=== PATIENT | female | born 1995 | race African-American/Black ===

== ENCOUNTER 2021-10-17 14:23 | Emergency (ER) | payer OTHER ==
[~2021-10-17] VITALS: Ht 162.6 cm; Wt 101.4 kg
--- NOTE | 2021-10-17 15:37 | PHYS DOC ---
Past Medical History Past Medical History: No Pertinent History Past Surgical History: No Surgical History General Adult EDM: Chief Complaint: SHOULDER INJURY HPI: HPI: Patient is a 26-year-old female that presents today with left shoulder pain. P corinne states that last or Wednesday she was lifting a trash bag out of a trash container and felt a pop in her left shoulder and since that time she has had increased pain and decreased range of motion in that left shoulder. While she was at work yesterday her employer gave her a sling to wear to help with pain, but no other further evaluation was done. Patient states she has been taking Tylenol and/or ibuprofen as needed for pain and that has not been helping, and she is here today for further evaluation of this. Review of Systems: Review of Systems: Constitutional: Denies fever or chills. [] Eyes: Denies change in visual acuity. [] HENT: Denies nasal congestion or sore throat. [] Respiratory: Denies cough or shortness of breath. [] Cardiovascular: Denies chest pain or edema. [] GI: Denies abdominal pain, nausea, vomiting, bloody stools or diarrhea. [] : Denies dysuria. [] Musculoskeletal: Left shoulder pain denies back pain Integument: Denies rash. [] Neurologic: Denies headache, focal weakness or sensory changes. [] Endocrine: Denies polyuria or polydipsia. [] Lymphatic: Denies swollen glands. [] Psychiatric: Denies depression or anxiety. [] Heart Score: C/O Chest Pain: N/A Risk Factors: Risk Factors: DM, Current or recent (<one month) smoker, HTN, HLP, family history of CAD, obesity. Risk Scores: Score 0 - 3: 2.5% MACE over next 6 weeks - Discharge Home Score 4 - 6: 20.3% MACE over next 6 weeks - Admit for Clinical Observation Score 7 - 10: 72.7% MACE over next 6 weeks - Early Invasive Strategies Allergies: Allergies: Allergies Coded Allergies Type Severity Reaction Last Updated Verified No Known Drug Allergies 10/17/21 No Physical Exam: PE: Constitutional: Well developed, well nourished, no acute distress, non-toxic appearance. [] HENT: Normocephalic, atraumatic, bilateral external ears normal, oropharynx moist, no oral exudates, nose normal. [] Eyes: PERRLA, EOMI, conjunctiva normal, no discharge. [] Neck: Normal range of motion, no tenderness, supple, no stridor. [] Cardiovascular:Heart rate regular rhythm, no murmur [] Lungs & Thorax: Bilateral breath sounds clear to auscultation [] Abdomen: Bowel sounds normal, soft, no tenderness, no masses, no pulsatile masses. [] Skin: Warm, dry, no erythema, no rash. [] Back: No tenderness, no CVA tenderness. [] Extremities: Left arm point tenderness located on the lateral aspect of the upper arm, patient is unable to elevate arm, patient has a positive drop arm test, radial pulse on the left arm is 2+ sensory is intact distal to the pain and injury patient has normal range of motion of the elbow. Neurologic: Alert and oriented X 3, normal motor function, normal sensory function, no focal deficits noted. [] Psychologic: Affect normal, judgement normal, mood normal. [] Current Patient Data: Vital Signs: Vital Signs Date Time Temp Pulse Resp B/P (MAP) Pulse Ox O2 Delivery O2 Flow Rate FiO2 10/17/21 14:23 97.7 70 18 113/71 (85) 100 Room Air 97.7 EKG: EKG: [] Radiology/Procedures: Radiology/Procedures: [REASON: SHOULDER PAIN DECREASE ROM PROCEDURE: SHOULDER 2+V LEFT Exam: XR SHOULDER_LEFT 2+ VIEWS History: Shoulder pain. Decreased range of motion. Comparison: None. Findings: Osseous mineralization is normal. No acute fracture or dislocaton. No significant degenerative changes. Soft tissues are unremarkable. Impression: 1. Unremarkable left shoulder. Electronically signed by: Mayank Jay MD (10/17/2021 3:52 PM) [id number]] Course & Med Decision Making: Course & Med Decision Making Pertinent Labs and Imaging studies reviewed. (See chart for details) 1600 reviewed radiological results with patient did inform her that no acute findings were seen on the x-ray but with her exam I am concerned with a rotator cuff tear. Patient is to wear the sling as needed for comfort, Motrin during the day to help with inflammation, and opioid medication at night to help her rest. Ice 20 minutes on 3-4 times daily we went over exercises such as pendulum swings and finger walking up the wall to help with keeping the arm moving. Patient will also be given the name of the orthopedic physician to follow-up with an week or 2 for further management of this. Patient verbalized understanding of this and is agreeable to the plan of care. Justice Disclaimer: Justice Disclaimer: This electronic medical record was generated, in whole or in part, using a voice recognition dictation system. Departure Departure Impression: Primary Impression: Rotator cuff injury Qualified Codes: S46.002A - Unspecified injury of muscle(s) and tendon(s) of the rotator cuff of left shoulder, initial encounter Disposition: HOME / SELF CARE / HOMELESS Condition: STABLE Referrals: MAYRA KING Jr. DO Patient Instructions: Rotator Cuff Injury, Shoulder Exercises, Generic, SportsMed Additional Instructions: Ice 20 minutes on 3-4 times daily to help with localized pain and swelling Motrin as labeled directed for pain, make sure you take this with food may cause stomach upset Hydrocodone 1 to 2 tablets every 6 hours as needed for severe pain Do shoulder exercises 3-4 times daily for at least 5 to 10 minutes Follow-up with orthopedic doctor Dr. King in the next week or 2 for further evaluation of your shoulder injury. Wear sling as needed for comfort. Scripts Hydrocodone/Acetaminophen (Hydrocodone-Acetamin 5-325 mg) 1 Each Tablet 1 EACH PO PRN Q6HRS PRN for PAIN, #14 TAB Prov: LORRI KAISER APRN 10/17/21 LORRI KAISER [employer] Oct 17, 2021 15:37
--- NOTE | 2021-10-17 15:54 | RAD ---
Exam: XR SHOULDER_LEFT 2+ VIEWS History: Shoulder pain. Decreased range of motion. Comparison: None. Findings: Osseous mineralization is normal. No acute fracture or dislocaton. No significant degenerative change s. Soft tissues are unremarkable. Impression: 1. Unremarkable left shoulder. Electronically signed by: Mayank Jay MD (10/17/2021 3:52 PM) [id number]
[2021-10-17] MEDS ORDERED: HYDR-2759 PO (16:09)
[2021-10-17 16:30] VITALS: BP 116/72
== END 2021-10-17 16:30 | disposition home or self-care (01) ==
LOC: ER 14:23
DX: S46.002A Unspecified injury of muscle(s) and tendon(s) of the rotator cuff of left shoulder, initial encounter (principal); X50.9XXA Other and unspecified overexertion or strenuous movements or postures, initial encounter; Y93.89 Activity, other specified; Y92.69 Other specified industrial and construction area as the place of occurrence of the external cause; Y99.0 Civilian activity done for income or pay
CPT/HCPCS: 73030; 99283